=== PATIENT | male | born 1995 | race Caucasian/White ===

== ENCOUNTER 2019-01-08 05:54 | Emergency (ER) | payer OTHER ==
[~2019-01-08] VITALS: Ht 177.8 cm; Wt 74.2 kg
[2019-01-08 05:59] VITALS: BP 155/75; PULSE 108; RESP 20; Ht 177.8 cm; Wt 74.2 kg
[2019-01-08] MEDS ORDERED: NYST1000 PO (07:05)
[2019-01-08] MEDS ORDERED: lidocaine (07:10)
[2019-01-08] MEDS ORDERED: LIDOCAINE PO (07:10)
--- NOTE | 2019-01-08 07:17 | ERD ---
ER Documentation Chief Complaint Chief Complaint mouth,lip sores/throat pain x 1 week, states getting worse, on valacyclovir HPI 23-year-old male presents with complaint of lesions to the lips x1 week as well as throat pain x2-3 days. Patient has noted a white surrounding the tongue and mouth with associated painful swallowing. Patient denies fevers, chills, difficulty breathing. Patient is currently on day 2 of valacyclovir for treatment of herpes labialis however presents at this time worsening of symptoms. Patient has a history of latent TB for which he is currently on rifampin and isoniazide x1.5 months. ROS All systems reviewed and are negative except as per history of present illness. Medications Home Meds Active Scripts Naloxone HCl nasal spray (Narcan 4 mg/0.1 mL nasal) 4 Mg [place], 4 MG NS .Q2-3MIN for OPIOID OVERDOSE, #2 SPRAY 0 Refills [place] 0.1 mL into one nostril. Repeat with second device into other nostril after 2-3 minutes if no or minimal response Prov:CORTNEY DEL ROSARIO MD 01/08/19 Hydrocodone/Acetaminophen ([place] 10-325 Tablet) 1 Each Tablet, 1 TAB PO Q6H PRN for PAIN, #7 TAB Prov:CORTNEY DEL ROSARIO MD 01/08/19 [Lidocaine Oral SLN] No Conflict Check, 30 ML PO Q3H PRN for PAIN, #1 BOT Prov:SINDI SMITH PA-C 01/08/19 Nystatin (Nystatin) 100,000 Unit/1 Ml Oral.susp, 5 ML PO QID for thrush for 7 Days, #200 ML Swish and swallow Prov:SINDI SMITH PA-C 01/08/19 Allergies Allergies: Coded Allergies: No Known Drug Allergies (Verified Allergy, Unknown, 01/08/19) PMhx/Soc Hx Miscellaneous Medical Probl: Yes (Latent TB) FmHx Family History: No diabetes, No coronary disease, No other Physical Exam Vitals Physical Exam Constitutional: Well developed. Well nourished. No acute distress Head/Eyes: Atraumatic. Normocephalic. PERRL. EOMI ENT: Multiple white adherent plaques to the oral mucosa and tongue. Visible crusting and discharge noted from the upper and lower lips. No angioedema, no tongue swelling. No drooling. moist mucous membranes. Voice normal. Uvula is midline. Neck: Supple. No lymphadenopathy Cardiovascular: Regular rate and rhythm. No murmurs, rubs, or gallops. Distal pulses intact Respiratory: No respiratory distress. Normal breath sounds. No wheezes, rales, or rhonchi. No audible stridor. Patient speaking full sentences. No accessory muslce use. Skin: Dry. No rashes. Warm Neurological: Alert and oriented X 3. Normal speech Psychiatric: Normal mood. Normal affect Procedures/MDM MDM: This is a 23yo M with hx of Latent TB who presents with symptoms and risk factors consistent for oral thrush. At this time pt is in no respiratory distress, speaking full sentences, no accessory muscle use, no drooling, and no stridor. Vitals are stable. Pt will be discharged with prescription for Nystatin and Oral Lidocaine. Advised to f/u with specialist managing latent TB to discuss possible side effects of medication. At this time pt is stable for discharge with strict ED return precautions. 8hr return recommended if sx worsen or persist. Pt expressed verbal understanding and agreement to treatment plan. All questions addressed and answered. Departure Diagnosis: Primary Impression: Thrush Additional Impression: Herpes labialis Condition: Stable Patient Instructions: Oral Thrush Additional Instructions: You have been diagnosed with Thrush. Thrush is a fungal infection of the mouth. You have been prescribed Nystatin oral mouthwash, please swish and swallow this medication as directed. You have also been prescribed oral lidocaine, you may also swish and swallow this medication as needed for pain. If you find that symptoms persist or worsen despite use of treatment, please return to the ED for further evaluation. SINDI SMITH PA-C Jan 08, 2019 07:17
[2019-01-08] MEDS ORDERED: HYDR-3980 PO (18:09)
[2019-01-08] MEDS ORDERED: NALO4SPR NS (18:09)
== END 2019-01-08 07:29 | disposition home or self-care (01) ==
LOC: FTE 05:54
DX: B37.0 Candidal stomatitis (principal); B00.1 Herpesviral vesicular dermatitis
CPT/HCPCS: 99283

== ENCOUNTER 2019-01-08 16:30 | Emergency (ER) | payer OTHER ==
[~2019-01-08] VITALS: Ht 175.3 cm; Wt 73.4 kg
[~2019-01-08 16:30] MED LIST: LIDOCAINE PO; NYST1000 PO; lidocaine
[2019-01-08 16:34] VITALS: Ht 175.3 cm; Wt 73.4 kg
[2019-01-08] MEDS ORDERED: SOD CHLORIDE 0.9% 1,000 ML IV STA (16:40)
[2019-01-08] MEDS ORDERED: morphine 4 MG/ML VIAL IV STA ×2 (16:46→18:11)
[2019-01-08] MEDS ORDERED: ONDANSETRON 4 MG INJ IV STA (16:46)
[2019-01-08] MEDS ORDERED: LIDOCAINE/MYLANTA 40 ML BTL PO ONE (17:00)
[2019-01-08] MEDS ORDERED: HYDR-3980 PO (18:09)
[2019-01-08] MEDS ORDERED: NALO4SPR NS (18:09)
[2019-01-08 18:51] VITALS: BP 118/73; PULSE 102; RESP 18
--- NOTE | 2019-01-08 18:53 | ERD ---
ER Documentation Chief Complaint Chief Complaint MOUTH SORES , UNABLE TO SWALLOW , SENT BY PMD FOR I/V HYDRATION HPI Patient is a 23-year-old male with history of latent TB who presents with oral mouth pain. The patient was seen today for thrush in the arterial and was discharged. He went to his primary doctor and was sent back to the ER for IV fluids. He has been on isoniazid and rifampin for about 1 month. He has had trouble with swallowing secondary to pain. He has no fevers. ROS All systems reviewed and are negative except as per history of present illness. Medications Home Meds Active Scripts Naloxone HCl nasal spray (Narcan 4 mg/0.1 mL nasal) 4 Mg [place], 4 MG NS .Q2-3MIN for OPIOID OVERDOSE, #2 SPRAY 0 Refills [place] 0.1 mL into one nostril. Repeat with second device into other nostril after 2-3 minutes if no or minimal response Prov:CORTNEY DEL ROSARIO MD 01/08/19 Hydrocodone/Acetaminophen ([place] 10-325 Tablet) 1 Each Tablet, 1 TAB PO Q6H PRN for PAIN, #7 TAB Prov:CORTNEY DEL ROSARIO MD 01/08/19 [Lidocaine Oral SLN] No Conflict Check, 30 ML PO Q3H PRN for PAIN, #1 BOT Prov:SINDI SMITH PA-C 01/08/19 Nystatin (Nystatin) 100,000 Unit/1 Ml Oral.susp, 5 ML PO QID for thrush for 7 Days, #200 ML Swish and swallow Prov:SINDI SMITH PA-C 01/08/19 Allergies Allergies: Coded Allergies: No Known Drug Allergies (Verified Allergy, Unknown, 01/08/19) PMhx/Soc Medical and Surgical Hx: pt denies Medical Hx, pt denies Surgical Hx Hx Miscellaneous Medical Probl: Yes (Latent TB) Hx Alcohol Use: No Hx Substance Use: No Hx Tobacco Use: No Smoking Status: Never smoker FmHx Family History: No diabetes Physical Exam Vitals Vital Signs Date Temp Pulse Resp B/P (MAP) Pulse Ox O2 O2 Flow FiO2 Time Delivery Rate 01/08/19 98.6 112 18 131/74 98 16:34 (93) Physical Exam Const: Mild distress secondary to pain Head: Atraumatic Eyes: Normal Conjunctiva ENT: Oral lesions to the lips and oropharynx possibly related to an aphthous stomatitis or drug reaction or thrush Neck: Full range of motion. No meningismus. Reactive lymph nodes bilaterally but no stridor over the neck Resp: Clear to auscultation bilaterally Cardio: Regular rate and rhythm, no murmurs Abd: Soft, non tender, non distended. Normal bowel sounds Skin: No petechiae or rashes Back: No midline or flank tenderness Ext: No cyanosis, or edema Neur: Awake and alert Psych: Normal Mood and Affect Result Diagram: 01/08/19 1705 01/08/19 1705 Results 24 hrs Laboratory Tests Test 01/08/19 17:05 White Blood Count 10.5 10^3/ul Red Blood Count 5.19 10^6/ul Hemoglobin 15.9 g/dl Hematocrit 45.7 % Mean Corpuscular Volume 88.1 fl Mean Corpuscular Hemoglobin 30.6 pg Mean Corpuscular Hemoglobin Concent 34.8 g/dl Red Cell Distribution Width 11.6 % Platelet Count 339 10^3/UL Mean Platelet Volume 8.5 fl Immature Granulocytes % 0.200 % Neutrophils % 67.2 % Lymphocytes % 17.7 % Monocytes % 11.5 % Eosinophils % 2.9 % Basophils % 0.5 % Nucleated Red Blood Cells % 0.0 /100WBC Immature Granulocytes # 0.020 10^3/ul Neutrophils # 7.1 10^3/ul Lymphocytes # 1.9 10^3/ul Monocytes # 1.2 10^3/ul Eosinophils # 0.3 10^3/ul Basophils # 0.1 10^3/ul Nucleated Red Blood Cells # 0.0 10^3/ul Sodium Level 142 mmol/L Potassium Level 4.0 mmol/L Chloride Level 103 mmol/L Carbon Dioxide Level 24 mmol/L Anion Gap 15 Blood Urea Nitrogen 13 mg/dl Creatinine 0.93 mg/dl Est Glomerular Filtrat Rate mL/min > 60 mL/min Glucose Level 96 mg/dl Calcium Level 9.5 mg/dl Total Bilirubin 0.7 mg/dl Direct Bilirubin 0.00 mg/dl Indirect Bilirubin 0.7 mg/dl Aspartate Amino Transf (AST/SGOT) 21 IU/L Alanine Aminotransferase (ALT/SGPT) 20 IU/L Alkaline Phosphatase 134 IU/L Total Protein 9.4 g/dl Albumin 5.0 g/dl Globulin 4.40 g/dl Albumin/Globulin Ratio 1.13 Lipase 65 U/L Current Medications Medications Dose Sig/Reinaldo Start Time Status Last (Trade) Ordered Route PRN Stop Time Admin Dose Reason Admin Sodium 1,000 ml @ Q1H STAT 01/08/19 DC 01/08/19 Chloride 1,000 mls/hr IV 16:40 17:18 01/08/19 17:39 Morphine 4 mg ONCE STAT 01/08/19 DC 01/08/19 Sulfate IV 16:46 17:18 (morphine) 01/08/19 16:47 Ondansetron 4 mg ONCE STAT 01/08/19 DC 01/08/19 HCl (Zofran IV 16:46 17:19 Inj) 01/08/19 16:47 40 ml ONCE ONCE 01/08/19 DC 01/08/19 Miscellaneous PO 17:00 17:19 Medication 01/08/19 17:01 (Gi Cocktail (2)) Morphine 4 mg ONCE STAT 01/08/19 DC 01/08/19 Sulfate IV 18:11 18:17 (morphine) 01/08/19 18:12 Procedures/MDM Patient is a 23-year-old male who presents with stomatitis and possible thrush. The patient was given 1 L normal saline bolus. Laboratory studies were basica lly normal. The patient was given a GI cocktail as well. I do not believe the patient requires admission to the hospital at this time. He has been instructed to stop the isoniazid and rifampin by his primary doctor which I agree with this could be causing his symptoms. He was given morphine in the emergency department for pain and feels better and I will treat him with a short course of [place] for pain. He will need to follow-up with his primary doctor but I have also given information for Dr. Giang from [facility] for follow-up. He can return for any worsening symptoms. Departure Diagnosis: Primary Impression: Drug reaction Encounter type: initial encounter Qualified Codes: T50.905A - Adverse effect of unspecified drugs, medicaments and biological substances, initial e ncounter Additional Impression: Sore in mouth Condition: Fair Patient Instructions: Aphthous Ulcer Referrals: DANITA GIANG MD Additional Instructions: SPECIALIST: YOU HAVE A MEDICAL CONDITION WHICH REQUIRES YOU TO SEE A SPECIALIST WITHIN THE NEXT 1-2 DAYS. PLEASE FOLLOW UP WITH YOUR PRIMARY PHYSICIAN FOR REFFERAL.IF YOU DO NOT HAVE A PRIMARY CARE PHYSICIAN AND/OR YOU CAN NOT AFFORD TO SEE A PHYSICIAN THE FOLLOWING RESOURCES HAVE BEEN SUPPLIED TO YOU. IT IS YOUR RESPONSIBILITY TO BE SEEN BY THE SPECIALIST CORTNEY DEL ROSARIO MD Jan 08, 2019 18:53
== END 2019-01-08 19:00 | disposition home or self-care (01) ==
LOC: E/R 16:30
DX: K13.79 Other lesions of oral mucosa (principal); T37.1X5A Adverse effect of antimycobacterial drugs, initial encounter; T36.6X5A Adverse effect of rifampicins, initial encounter; K13.0 Diseases of lips
CPT/HCPCS: 36415; 80053; 83690; 85025; 96361; 96374; 96375; 96376; J2270; J2405; J7030; Z7502; Z7610